=== PATIENT | female | born 1935 | race Native Hawaiian/Other Pacific Islander ===

== ENCOUNTER 2017-05-05 00:31 | Outpatient (CLI) | payer OTHER ==
[2017-05-06] MEDS ORDERED: PROTONIX20 MG PO (02:15)
[2017-05-06] MEDS ORDERED: BUMETANIDE1 MG PO (02:15)
[2017-05-06] MEDS ORDERED: KP FOLIC ACID1 MG PO (02:16)
[2017-05-06] MEDS ORDERED: LEVAQUIN250 MG PO (02:16)
[2017-05-06] MEDS ORDERED: TEMA15CA19 PO (02:18)
[2017-05-06] MEDS ORDERED: CLOPIDOGREL75 MG PO (02:19)
[2017-05-06] MEDS ORDERED: CARV12.5 PO (02:19)
[2017-05-06] MEDS ORDERED: SPIRONOLACT25 MG PO (02:20)
[2017-05-06] MEDS ORDERED: PREDNISONE10 M1 OR (02:22)
[2017-05-06] MEDS ORDERED: KLOR-CON M2020 MEQ OR (02:23)
[2017-05-06] MEDS ORDERED: SIMV10TA PO (02:23)
== END 2017-05-05 00:36 | disposition short-term general hospital (02) ==
LOC: AMB 00:31
DX: R06.02 Shortness of breath (principal)
CPT/HCPCS: A0425; A0427

== ENCOUNTER 2017-05-06 00:50 | Emergency (ER) | payer OTHER ==
[~2017-05-06] VITALS: Ht 172.7 cm; Wt 85.7 kg
[2017-05-06 01:12] LABS: PLATELET COUNT 212 K/uL (152-353)
[2017-05-06 01:15] LABS: POTASSIUM 4.6 mmol/L (3.6-5.2)
[2017-05-06 01:39] LABS: PARTIAL THROMBOPLASTIN TIME 21.4 SECONDS (24.5-33.6)
[2017-05-06] MEDS ORDERED: PROTONIX20 MG PO (02:15)
[2017-05-06] MEDS ORDERED: BUMETANIDE1 MG PO (02:15)
[2017-05-06] MEDS ORDERED: LEVAQUIN250 MG PO (02:16)
[2017-05-06] MEDS ORDERED: KP FOLIC ACID1 MG PO (02:16)
[2017-05-06] MEDS ORDERED: TEMA15CA19 PO (02:18)
[2017-05-06] MEDS ORDERED: CLOPIDOGREL75 MG PO (02:19)
[2017-05-06] MEDS ORDERED: CARV12.5 PO (02:19)
[2017-05-06] MEDS ORDERED: SPIRONOLACT25 MG PO (02:20)
[2017-05-06] MEDS ORDERED: PREDNISONE10 M1 OR (02:22)
[2017-05-06] MEDS ORDERED: KLOR-CON M2020 MEQ OR (02:23)
[2017-05-06] MEDS ORDERED: SIMV10TA PO (02:23)
[2017-05-06 05:20] VITALS: BP 143/60; TEMP 98.8
== END 2017-05-06 05:24 | disposition short-term general hospital (02) ==
LOC: ED 00:50
PROVIDERS: Specialist
PROC: 0T9B70Z Drainage of Bladder with Drainage Device, Via Natural or Artificial Opening (ICD-10-PCS; principal; 2017-05-06)
DX: I50.9 Heart failure, unspecified (principal); E11.65 Type 2 diabetes mellitus with hyperglycemia; I44.7 Left bundle-branch block, unspecified
CPT/HCPCS: 36415; 36600; 51702; 80053; 81000; 82550; 82553; 82805; 83880; 84484; 85027; 85610; 85730; 93005; 96365; 96366; 96374; 96375; 99285; J1940; J2543; J2930; J3490